=== PATIENT | male | born 1945 | race Caucasian/White ===

== ENCOUNTER → 2016-11-17 | Outpatient (CLI) | payer OTHER ==
--- NOTE | 2016-11-17 16:16 | EKG ---
[address] [id number] Measurements Intervals [place] Rate: 81 P: 68 SD: 157 QRS: 93 QRSD: 80 T: 64 QT: 360 QTc: 397 Interpretive Statements SINUS RHYTHM BORDERLINE RIGHT AXIS DEVIATION [QRS AXIS > 90] Electronically Signed On 11-18-16 08:30:02 [facility] by Roberto Dennis MD [email or web address]
== END ==
LOC: MOB EKG 13:33
PROVIDERS: ATTEND Podiatrist Foot & Ankle Surgery
DX: M79.671 Pain in right foot (principal); I10 Essential (primary) hypertension
CPT/HCPCS: 93005; 93010

== ENCOUNTER 2016-11-25 07:54 | Day surgery (SDC) | payer OTHER ==
[~2016-11-25 07:54] MED LIST: LIDOCAINE W/ SODIUM BICARB 0.5 ML SYR ONE; Lactated Ringers 1,000 ML PRIMARY IV ONE; ceFAZolin Inj 2gm (Premix) 50 ML IV ONE
[2016-11-25] MEDS ORDERED: MIDAZOLAM 5 MG/1 ML ONE (08:21)
[2016-11-25] MEDS ORDERED: fentaNYL Inj 250 MCG/5 ML VIAL ONE (08:21)
[2016-11-25] MEDS ORDERED: BUPivacaine Inj 0.5% PF (5mg/ml) 10ml vial ONE ×2 (08:25→09:57)
[2016-11-25] MEDS ORDERED: LIDOCAINE 2% 20 MG/ML - 20 ML VIAL ONE (08:25)
[2016-11-25] MEDS ORDERED: NORMAL SALINE 10 ML SYRINGE FLUSH IVP PRN (10:21)
[2016-11-25 11:05] VITALS: RESP 16; TEMP 98
--- NOTE | 2016-11-25 11:08 | GEN.OPNOTE ---
Operative Report Surgeon: Dr. Lars Dinh DPSandy Clock Mechanic: Other (Dr. Kobi Cormier DPSandy) Anesthesia Type: Local, MAC Anesthesia Provider: Felipe Payton CRNA Surgery Date: 11/25/16 Preoperative Diagnosis: Painful nonhealing fracture of the proximal phalanx right great toe with sagittal plane displacement. Patient continues to have pain despite 2 months status post break and being in a cast boot. Postoperative Diagnosis: same Procedure: Attempt at manipulation of the displaced fracture then percutaneous screw fixation of fracture fragment. Indications for the Procedure: Nonhealing displaced fracture. Description of Procedure: Under mild sedation the patient was wheeled into the operating room placed on the operating table in the supine position. The right foot was then examined and local ray block of the first ray was performed using 1:1 mixture of lidocaine and Marcaine. The foot was then prepped scrubbed and draped in the usual sterile fashion. C-arm was then used to examine the toe. The C-arm was put on fluoroscopy and an attempt to manipulate the distal fracture fragment in the transverse plane showed some movement of the distal fragment trying to manipulate it in the sagittal plane showed no movement or very little movement. The K wire was then used to gabriela the course of the screw placement using the C -arm. Once this was accomplished. The Esmarch bandage was used to exsanguinate the foot the ankle tourniquet was inflated. Attention was then directed to the medial aspect of the base of the proximal phalanx of the right great toe. Small 1cm incision was made down to bone. Once this was accomplished K wire was then inserted using the C-arm for guidance and good placement was noted on the AP view. 3-0 drill was then placed over the K wire and used to drill the hole that the screw would go into. The screw hole was countersunk and then measured with the depth gauge. 32 mm 3.0 screw was then placed in on the K wire and screwed into place good compression was noted x-ray was taken again the lateral view showed that the screw was too plantarly located. The screw was removed and new K wire hole was then placed from medial proximal to distal lateral across the proximal phalanx was checked on AP and lateral view and showed good placement. This was measured and third showed a 34 mm 3.0 screw was placed on the K wire and countersunk it was screwed in place showed good compression and alignment was checked with fluoroscopy. Incision site was closed with 4-0 nylon. An ankle tourniquet was deflated. Proper hyperemic response was noted to the toe local anesthesia consisting of approximately 5 mL of 0.5% Marcaine was then injected proximal in and about and proximal to the surgery site. Dry sterile dressing consisting of Xeroform gauze , regular gauze and Coban was applied patient tolerated the procedure well following a brief period of postoperative monitoring the patient will be sent home with written and oral postoperative instructions.
--- NOTE | 2016-11-25 15:54 | OPS CRUTCH ---
Diagnosis : Right Great Toe Pinning Referral Reason: CAM Walker O: Patient was issued a CAM Walker and instructed in its proper use and care. P: No further therapy is indicated at this time. MTDD
== END 2016-11-25 11:41 | disposition home or self-care (01) ==
LOC: SDSC 07:54
PROVIDERS: ATTEND Podiatrist Foot & Ankle Surgery
DX: S92.411G Displaced fracture of proximal phalanx of right great toe, subsequent encounter for fracture with delayed healing (principal)
CPT/HCPCS: 28496; 76000; J0690; J2704; J3010; J2001; J2250; J3490; J7120